=== PATIENT | female | born 1950 | race Caucasian/White ===

== ENCOUNTER 2017-01-03 12:38 | Inpatient (IN) | payer OTHER, MEDICAID ==
[2017-01-03] MEDS ORDERED: ONDANSETRON 4 MG/2 ML VIAL IVP ONE ×2 (13:14→16:21)
[2017-01-03] MEDS ORDERED: NS 1,000 ML IV ONE ×4 (13:14→19:17)
--- NOTE | 2017-01-03 13:25 | EDPHY ---
H & P Stated Complaint: abd Pain, N/V/D x3 days Time Seen by Provider: 01/03/17 13:03 HPI/ROS: CHIEF COMPLAINT: Vomiting, Diarrhea HISTORY OF PRESENT ILLNESS: The patient is a 66 year old female who presents with vomiting and diarrhea. The patient reports multiple episodes of vomiting for the past 3 day with decreased appetite. She had 2 episodes of nonbloody diarrhea, last episode was this morning. She received Zofran yesterday and today. The patient currently feels lightheaded and has diffuse myalgias. She complains of diffuse abdominal pain and mild shortness of breath. She reports contacts at [facility] with vomiting and diarrhea. The patient has not received any of her medications for the past 2 days. No fever, chills, chest pain, palpitations, urinary complaints, or headache. No history of clostridium difficile. REVIEW OF SYSTEMS: Aside from elements discussed in the HPI, a comprehensive 10-point review of systems was reviewed and is negative. PAST MEDICAL HISTORY: Hypertension, Hyperlipidemia, Reflux, Depression, COPD, GA. SOCIAL HISTORY: Patient resides [facility]. Previous EtOH use. I discussed the patients wishes. Patient is DNR. She would like antibiotics and intervention with medication. VITAL SIGNS: Reviewed by me GENERAL: Ill-appearing female, appears uncomfortable, very pale. HEENT: Atraumatic. Eyes: Pale conjunctiva. Mouth: dry mucous membranes. Pale oropharynx. No erythema or lesions. Neck: supple with no adenopathy. LUNGS: Clear to auscultation anteriorly, no wheezes, rhonchi or rales. CARDIAC: Tachycardic, distant, no rubs, murmurs or gallops. ABDOMEN: Morbidly obese, questionable fluid wave, diffusely tender. No guarding or rebound. BACK: No CVA tenderness. EXTREMITIES: No trauma. No edema. Range of motion is normal throughout. NEURO: Alert and oriented, grossly nonfocal. SKIN: Warm and dry, no rash. Pale appearing. PSYCHIATRIC: Normal mentation, no agitation. Portions of this note were transcribed by a medical pathology teacher. I personally performed a history, physical exam, medical decision making, and confirmed accuracy of information the transcribed note. - Personal History Current Tetanus/Diphtheria Vaccine: Yes Current Tetanus Diphtheria and Acellular Pertussis (TDAP): Yes - Medical/Surgical History Hx Asthma: No Hx Chronic Respiratory Disease: Yes Hx Diabetes: No Hx Cardiac Disease: Yes Hx Renal Disease: No Hx Cirrhosis: No Hx Alcoholism: No Hx HIV/AIDS: No Hx Splenectomy or Spleen Trauma: No Other PMH: depression, copd, GERD, Cardiac stents x 3, high cholersterol, HTN, artherosclerosis, hyponatremia, edema, chronic pain - Social History Smoking Status: Former smoker Constitutional: Initial Vital Signs Temperature (C) 36.8 C 01/03/17 12:51 Heart Rate 117 H 01/03/17 12:51 Respiratory Rate 16 01/03/17 12:51 Blood Pressure 116/82 H 01/03/17 12:51 O2 Sat (%) 85 L 01/03/17 12:51 O2 Delivery Mode Room Air O2 (L/minute) 2 Allergies/Adverse Reactions: No Known Allergies Allergy (Unverified 04/24/16 19:58) Home Medications: Medication Instructions Recorded Acetaminophen [Tylenol 325mg (*)] 325 mg PO Q4 PRN 04/24/16 Acetaminophen [Tylenol 325mg (*)] 650 mg PO Q4 PRN 04/24/16 Aspirin EC [Aspirin EC 81 mg (*)] 81 mg PO DAILY 04/24/16 Atorvastatin Calcium [Lipitor 40 40 mg PO HS 04/24/16 mg (*)] Clopidogrel Bisulfate [Plavix (*)] 75 mg PO DAILY 04/24/16 DULoxetine [Cymbalta 60 MG (*)] 120 mg PO HS 04/24/16 Docusate Sodium [Colace 100 MG (*)] 100 mg PO BID PRN 04/24/16 Fluticasone/Salmeter 250/50Mcg 2 puffs IH BID 04/24/16 [Advair 250/50 (*)] Losartan Potassium [Cozaar 25 mg 25 mg PO DAILY 04/24/16 (*)] Pantoprazole Sodium [Protonix 40mg 40 mg PO DAILY 04/24/16 (*)] Tiotropium Inhaler [Spiriva 18 mcg IH DAILY 04/24/16 Handihaler] Albuterol [Proventil Inhaler HFA 1 puffs IH HS PRN 01/03/17 (*)] Cholecalciferol Vit D3 [Vitamin D3 3,000 units PO DAILY 01/03/17 (*)] Cyanocobalamin [Vitamin B12 (*)] 1,000 mcg PO DAILY 01/03/17 Furosemide [Lasix 20 MG (*)] 20 mg PO DAILY 01/03/17 Ipratropium/Albuterol [Duoneb (*)] 3 ml IH Q4HRS PRN 01/03/17 Lurasidone HCl [Latuda] 40 mg PO DAILY@0800 01/03/17 Metoprolol Tartrate [Lopressor 25 12.5 mg PO BID 01/03/17 mg (*)] Ondansetron Odt [Zofran Odt 4 mg 8 mg PO Q8HRS PRN 01/03/17 (*)] Potassium Cl [Klor-Con] 10 meq PO DAILY 01/03/17 Sennosides/Docusate Sodium 1 each PO BID PRN 01/03/17 [Senna-Docusate Sodium Tablet] Medical Decision Making - Diagnostics EKG Interpretation: The 12 lead EKG was interpreted by myself. See hard copy and/or "tracemaster" electronic copy for interpretation: Sinus tachycardia, Nonspecific T waves. Imaging: X-ray: Chest was obtained. I viewed the images myself on the PACS system. My interpretation of the images is: Nothing acute. The radiologist interpretation is: No acute coronary disease. I discussed the x-ray findings with the patient. Results: CT scan of the was obtained. I viewed the images independently on the PACS system. I discussed the results of the study with the radiologist. Impression : large bowel distention without thickening of the bowel wall. Stool sitting at the level of the sigmoid. Please see the full radiology report. ED Course/Re-evaluation: IV was established. Patient received 4mg Zofran IV and 2L normal saline. BGL 213. BUN 60. Creat 2.7. Bicarbonate 12. Patient has a sodium of 132 potassium of 5.4. Lipase 16. WBC 7, hemoglobin and hematocrit 18 and 53. Patient has labs consistent with acute renal failure, and severe dehydration. Plan to admit. 2:45 p.m.: Dr. Trevino accepts the patient for admission. I will order CT abdomen. CT scan demonstrates large bowel dilatation without clear obstruction, although there is a ball of stool at the level of the sigmoid. No bowel wall thickening. No abscess. Patient was admitted to the hospital for supportive care including fluids, antiemetics. Differential Diagnosis: Differential diagnosis of the patient's nausea, vomiting, and diarrhea was considered including but not limited to gastroenteritis, gastritis, colitis, diverticulitis, bacterial dysentery, viral diarrhea and intraabdominal processes including appendicitis, pancreatitis, bowel obstruction. Consult/Admit Bed Type: Dr. Trevino, [facility] - Data Points Laboratory Results: Laboratory Results 01/03/17 13:10 01/03/17 13:10 01/03/17 01/03/17 01/03/17 13:10 13:10 13:10 WBC 7.15 10^3/uL 10^3/uL (3.80-9.50) RBC 5.38 10^6/uL H 10^6/uL (4.18-5.33) Hgb 18.0 g/dL H g/dL (12.6-16.3) Hct 54.0 % H % (38.0-47.0) MCV 100.4 fL H fL (81.5-99.8) MCH 33.5 pg pg (27.9-34.1) MCHC 33.3 g/dL g/dL (32.4-36.7) RDW 13.2 % % (11.5-15.2) Plt Count 266 10^3/uL 10^3/uL (150-400) MPV 11.7 fL fL (8.7-11.7) Neut % (Auto) 71.8 % % (39.3-74.2) Lymph % (Auto) 17.8 % % (15.0-45.0) Holt % (Auto) 9.8 % % (4.5-13.0) Eos % (Auto) 0.1 % L % (0.6-7.6) Baso % (Auto) 0.4 % % (0.3-1.7) Nucleat RBC Rel Count 0.0 % % (0.0-0.2) Absolute Neuts (auto) 5.13 10^3/uL 10^3/uL (1.70-6.50) Absolute Lymphs (auto) 1.27 10^3/uL 10^3/uL (1.00-3.00) Absolute Monos (auto) 0.70 10^3/uL 10^3/uL (0.30-0.80) Absolute Eos (auto) 0.01 10^3/uL L 10^3/uL (0.03-0.40) Absolute Basos (auto) 0.03 10^3/uL 10^3/uL (0.02-0.10) Absolute Nucleated RBC 0.00 10^3/uL 10^3/uL (0-0.01) Immature Gran % 0.1 % % (0.0-1.1) Seg Neutrophils % 9 % % Band Neutrophils % 52 % % Lymphocytes % 16 % % Monocytes % 10 % % Metamyelocytes % 11 % % Myelocytes % 2 % % Immature Gran # 0.01 10^3/uL 10^3/uL (0.00-0.10) Absolute Seg Neuts 0.64 10^/uL L 10^/uL (1.70-6.50) Absolute Band Neuts 3.72 10^3/uL H 10^3/uL (0.00-0.70) Absolute Lymphocytes 1.14 10^3/uL 10^3/uL (1.00-3.00) Absolute Monocytes 0.72 10^3/uL 10^3/uL (0.30-0.80) Absolute Metamyelocyte 0.79 10^3/mL H 10^3/mL (0.00-0.00) Absolute Myelocytes 0.14 10^3/mL H 10^3/mL (0.00-0.00) Platelet Estimate ADEQUATE (ADEQ) Giant Platelets PRESENT H Echinocytes 1+ H Smear Review By Pending Sodium 132 mEq/L L mEq/L (134-144) Potassium 5.4 mEq/L H mEq/L (3.5-5.2) Chloride 97 mEq/L mEq/L (97-110) Carbon Dioxide 12 mEq/l L mEq/l (22-31) Anion Gap 23 mEq/L H mEq/L (8-16) BUN 60 mg/dL H mg/dL (7-23) Creatinine 2.7 mg/dL H mg/dL (0.6-1.0) Estimated GFR 18 Glucose 213 mg/dL H mg/dL (70-100) Calcium 9.5 mg/dL mg/dL (8.5-10.4) Total Bilirubin 1.9 mg/dL H mg/dL (0.1-1.4) Conjugated Bilirubin 1.2 mg/dL H mg/dL (0.0-0.5) Unconjugated Bilirubin 0.7 mg/dL mg/dL (0.0-1.1) AST 32 IU/L IU/L (14-46) ALT 44 IU/L IU/L (9-52) Alkaline Phosphatase 405 IU/L H IU/L (38-126) Troponin I 0.033 ng/mL ng/mL (0-0.034) Total Protein 6.6 g/dL g/dL (6.3-8.2) Albumin 3.8 g/dL g/dL (3.5-5.0) Lipase 16.0 IU/L L IU/L (23-300) Medications Given: Discontinued Medications Sodium Chloride (Ns) 1,000 mls @ 0 mls/hr IV ONCE ONE PRN Reason: Wide Open Stop: 01/03/17 13:15 Last Admin: 01/03/17 13:23 Dose: 1,000 mls Sodium Chloride (Ns) 1,000 mls @ 0 mls/hr IV ONCE ONE PRN Reason: Wide Open Stop: 01/03/17 13:27 Last Admin: 01/03/17 13:41 Dose: 1,000 mls Ondansetron HCl (Zofran) 4 mg IVP EDNOW ONE Stop: 01/03/17 13:15 Last Admin: 01/03/17 13:24 Dose: 4 mg Departure - Departure Disposition: [facility] Acute Clinical Impression: Dehydration, Acidosis, metabolic Vomiting Qualifiers: Vomiting type: unspecified Vomiting Intractability: non-intractable Nausea presence: with nausea Qualified Code(s): R11.2 - Nausea with vomiting, unspecified Diarrhea Qualifiers: Diarrhea type: unspecified type Qualified Code(s): R19.7 - Diarrhea, unspecified Acute renal failure Qualifiers: Acute renal failure type: unspecified Qualified Code(s): N17.9 - Acute kidney failure, unspecified Condition: Serious Report Scribed for: Lia Graves Report Scribed by: Edith Cowan Date of Report: 01/03/17 Time of Report: 13:25
[2017-01-03 13:43] LABS: ALANINE AMINOTRANSFERASE 44 IU/L (9-52); ALBUMIN 3.8 g/dL (3.5-5.0); ALKALINE PHOSPHATASE 405 IU/L (38-126); ANION GAP 23 mEq/L (8-16); ASPARTATE AMINOTRANSFERASE 32 IU/L (14-46); BILIRUBIN,TOTAL 1.9 mg/dL (0.1-1.4); BILIRUBIN-CONJUGATED 1.2 mg/dL (0.0-0.5); BILIRUBIN-UNCONJUGATED 0.7 mg/dL (0.0-1.1); CALCIUM 9.5 mg/dL (8.5-10.4); CARBON DIOXIDE 12 mEq/l (22-31); CHLORIDE 97 mEq/L (97-110); CREATININE 2.7 mg/dL (0.6-1.0); GLOMERULAR FILTRATION RATE 18; GLUCOSE 213 mg/dL (70-100); POTASSIUM 5.4 mEq/L (3.5-5.2); SODIUM 132 mEq/L (134-144); TOTAL PROTEIN 6.6 g/dL (6.3-8.2)
[2017-01-03 13:44] LABS: % IMMATURE GRANULYOCYTES 0.1 % (0.0-1.1); ABSOLUTE IMMATURE GRANULOCYTES 0.01 10^3/uL (0.00-0.10); ADD DIFF? NO; ADD MORPH? NO; ADD SCAN? YES; ATYPICAL LYMPHOCYTE FLAG 0 (0-99); FRAGMENT RBC FLAG 0 (0-99); LIPEMIA HEMOLYSIS FLAG 80 (0-99); MEAN CELL HEMOGLOBIN 33.5 pg (27.9-34.1); MEAN CELL HEMOGLOBIN CONCENTR. 33.3 g/dL (32.4-36.7); MEAN CELL VOLUME 100.4 fL (81.5-99.8); MEAN PLATELET VOLUME 11.7 fL (8.7-11.7); PLATELET CLUMPS FLAG 10 (0-99); PLATELET COUNT 266 10^3/uL (150-400); RED BLOOD CELL COUNT 5.38 10^6/uL (4.18-5.33); RED CELL DISTRIBUTION WIDTH 13.2 % (11.5-15.2)
[2017-01-03 13:47] LABS: LEFT SHIFT FLG 300 (0-99)
--- NOTE | 2017-01-03 13:53 | CPEKG ---
Heart Rate: 110 RR Interval: 545 P-R Interval: 148 QRSD Interval: 80 QT Interval: 292 QTC Interval: 396 P Smoot: 75 QRS Smoot: 23 T Wave Smoot: 97 EKG Severity - ABNORMAL ECG - EKG Impression: SINUS TACHYCARDIA EKG Impression: LOW VOLTAGE IN FRONTAL LEADS EKG Impression: NONSPECIFIC T ABNORMALITIES, ANT-LAT LEADS Electronically Signed By: Lia Graves 03-Jan-2017 15:39:56
[2017-01-03 14:44] LABS: SCAN POSITIVE
[2017-01-03 14:48] LABS: ECHINOCYTES 1+; GIANT PLATELETS PRESENT; PLATELET ESTIMATE ADEQUATE (ADEQ)
[2017-01-03] MEDS ORDERED: ONDANSETRON 4 MG/2 ML VIAL ONE (16:15)
[2017-01-03] MEDS ORDERED: DOCUSATE SODIUM 100 MG CAP PO PRN (17:12)
[2017-01-03] MEDS ORDERED: IPRATROPIUM/ALBUTEROL 3 ML DEYVIAL IH PRN (17:12)
[2017-01-03] MEDS ORDERED: ONDANSETRON DISINTEGRATING 4 MG TAB PO PRN (17:15)
[2017-01-03] MEDS ORDERED: ONDANSETRON 4 MG/2 ML VIAL IVP PRN (17:15)
[2017-01-03] MEDS ORDERED: ACETAMINOPHEN 325 MG TAB PO PRN (17:15)
[2017-01-03] MEDS ORDERED: oxyCODONE IR 5 MG TAB PO PRN (17:27)
--- NOTE | 2017-01-03 17:59 | GHP ---
[f rep st] HISTORY AND PHYSICAL DATE OF ADMISSION: 01/03/2017 CHIEF COMPLAINT: Nausea, vomiting, diarrhea, acute renal failure. HISTORY OF PRESENT ILLNESS: Patient is a 66-year-old female, history of CAD, status post stent, brought in from [facility] with nausea, vomiting and diarrhea. For the past 3 days, she has had several episodes of nonbloody emesis , as well as nonbloody diarrhea, last episode being this morning. She uses Zofran yesterday and today with some relief. She has had minimal p.o. intake and is feeling lightheaded and dizzy. Has had some diffuse myalgias. Complains of diffuse crampy abdominal pain and mild shortness of breath. She reports ill contacts at [facility] with vomiting and diarrhea. She has not taken any of her medications over the past 2 days. Denies fevers, chills, or sweats. No chest pain or palpitations. No dysuria. No headache. REVIEW OF SYSTEMS: I completed a 10-point review of systems, negative except as noted in HPI. PAST MEDICAL HISTORY: 1. CAD, status post 2 stents. 2. COPD. 3. Hypertension. 4. Depression. PAST SURGICAL HISTORY: Hysterectomy. FAMILY HISTORY: CAD. SOCIAL HISTORY: Lives at [facility]. Smoked a pack and half of cigarettes for 50 years. No alcohol or illicits. ALLERGIES: None. MEDICATIONS: See medication reconciliation. PHYSICAL EXAMINATION: VITAL SIGNS: Temperature 36.8, blood pressure 116/82, heart rate one teens, respirations 16, 85% on room air and 96% on 2 L. GENERAL : Patient is ill-appearing, very pale, groggy. HEENT: PERRLA. EOMI. Very dry mucous membranes. Oropharynx is clear. No exudate. CV: Regular rate and rhythm. No murmurs, gallops, or rubs. LUNGS: Clear to auscultation. ABDOMEN : Obese, distended, diffusely tender. No rebound or guarding. Positive bowel sounds throughout. : No suprapubic tenderness. MUSCULOSKELETAL: Moving all 4 extremities. SKIN: Cold upper extremities. No rash or ulceration. NEUROLOGIC: 2 through 12 intact. No focal deficits. PSYCHIATRIC: Slow to answer, but alert to place and date. Had just received morphine. LAB: WBC 7, hemoglobin 18, hematocrit 54, platelets are 266. Sodium 132 potassium 5.4, chloride 97, carbon dioxide 12, BUN 60, creatinine 2.7, glucose 217. Total bilirubin 1.9, conjugated 1.2. AST 32, AST 44, alkaline phosphatase 403. Troponin 0.033. Total free protein 16. Albumin 3.8, lipase 16. Chest x-ray personally reviewed by me: No evidence of effusion or opacity. CT abdomen and pelvis: [id number] dilatation of large bowel from the cecum to the sigmoid colon. No obstruction. Distended stomach. Mild emphysematous changes within the lung. Some scarring left lower lobe. EKG personally reviewed by me: A normal sinus rhythm. Nonspecific ST abnormalities. Low voltage. Similar to prior. ASSESSMENT/PLAN: 1. Nausea, vomiting, diarrhea: Suspect this is a gastroenteritis, given ill contacts at [facility]. Check a stool PCR, including C difficile. Will hydrate with IV fluids, p.r.n. antiemetics, and pain medications. CT showed dilatation, but no evidence of obstruction or abscess. 2. Acute renal failure: Creatinine is elevated 2.7. Suspect this is secondary to emesis, diarrhea, and decreased p.o. intake. Will hold Lasix and lisinopril. Check UA and urine electrolytes. Aggressive IV fluid resuscitation. 3. History of coronary artery disease: Status post 2 stents. Continue beta- fabiano, aspirin, and statin. 4. Chronic obstructive pulmonary disease: Continue home inhalers. 5. Benign hypertension: Hold antihypertensives given low blood pressure here. 6. Hyperbilirubinemia: Suspect secondary to a GI illness. Will repeat in the morning. 7. Hyperkalemia: Mildly elevated 5.4. No EKG changes. Repeating this evening. 8. Polycythemia: Suspect this is due to dehydration. Will repeat in the morning. 9. Hypotension: responding to IVFS, will check lactate. Afebrile. No leukocytosis. Trop and EKG negative for ischemia. 10. Diet: Cardiac. 11. DVT prophylaxis: Subcu heparin. 12. Patient warrants inpatient admission, given acute renal failure, severe dehydration requiring IV fluids, and telemetry. /[id number]/MODL MTDD
[2017-01-03] MEDS: NS 1,000 ML IV SCH ×2 (18:31→21:18)
[2017-01-03] MEDS ORDERED: DULoxetine 60 MG CAP PO SCH (21:00)
[2017-01-03] MEDS ORDERED: METOPROLOL TARTRATE 25 MG TAB PO SCH (21:00)
[2017-01-03] MEDS ORDERED: ATORVASTATIN CALCIUM 40 MG TAB PO SCH (21:00)
[2017-01-03] MEDS: HEPARIN 5,000 UNIT/0.5 ML SYR SC SCH (21:18)
[2017-01-03] MEDS ORDERED: NOREPINEPHRINE BITARTRATE 4 MG in D5W 500 ML IV SCH (22:00)
--- NOTE | 2017-01-03 22:01 | SOAPPROG ---
SOAP Progress Note Assessment/Plan: Called to bedside 21:45 as patient now hypotensive with SBP 83 and unable to draw blood for labs. She was initially bolused 3L NS in ER; I gave additional liter and BP improved to 134/86. S: c/o crampy abd pain and it "feels full" #Septic shock: not responding to IVFs with oliguria. No clear infectious source. Lactate 4.9, afebrile, no leukocytosis. CT abd/pelvis negative for abscess, CXR negative. K was mildly elevated with no EKG changes -Pending labs: UA, GI panel, Influenza. -Transfer to ICU. Appreciate Dr. Waters's assistance with central line. Start dopamine temporarily, then change to Levophed. Cont IVFs -repeat CMP, CBC, lactate, troponin. Check stat blood cultures, cortisol. Start IV Zoysn for intraabdominal coverage; renally-dosed -place bolanos for accurate I/Os #Abdominal pain/distention: dilation, no obstruction on CT. Reviewed with Dr. Waters. Will place NG for decompression #Oliguric ARF: suspect due to dehydration, hypotension. Aggressive IVFs, now on pressors. Urine studies pending. Renally-dose medications. #Goals: DNR. Spoke with her sister, Yessica, on the phone (MDPOA) She confirmed DNR status. If issues, call her overnight. Critical care time spent 60 min: spent bedside with pt, coordinating ICU transfer and discussing case with Dr. Waters 01/03/17 23:49 Objective: Vital Signs Temp Pulse Resp BP Pulse Ox 36.4 C 116 H 16 85/62 L 92 01/03/17 21:37 01/03/17 21:50 01/03/17 21:37 01/03/17 21:50 01/03/17 21:37 Laboratory Results 01/03/17 20:30 01/02/17 01/03/17 01/04/17 05:59 05:59 05:59 Intake Total 3130 Balance 3130 Physical Exam - Physical Exam General Appearance: alert EENT: PERRL/EOMI, pale conjunctiva (R) Respiratory: lungs clear Cardiac/Chest: regular rate, rhythm Abdomen: normal bowel sounds, other (distended, mild diffuse TTP) Skin: pallor Neuro/Psych: oriented x 3 ICD10 Worksheet Patient Problems: Problems Problem Status Onset Acidosis, metabolic Acute Acute renal failure Acute Dehydration Acute Diarrhea Acute Vomiting Acute Nausea vomiting and diarrhea Acute
[2017-01-03] MEDS ORDERED: NS 1,000 ML IV SCH (22:30)
[2017-01-03 22:33] LABS: COLOR AMBER; LEUKOCYTE ESTERASE,URINE NEGATIVE (NEGATIVE); MUCUS TRACE /lpf (NONE-1+); NITRITE,URINE NEGATIVE (NEGATIVE)
[2017-01-03] MEDS: FLUTICASONE/SALMETER 250/50MCG DISKUS IH SCH (22:41)
[2017-01-03 22:53] LABS: HYALINE CASTS 25-50 /lpf (0-1)
[2017-01-03 22:54] LABS: RBC,URINE NONE SEEN /hpf (0-3); WBC,URINE NONE SEEN /hpf (0-3)
[2017-01-03 22:55] LABS: BACTERIA NONE SEEN /hpf (NONE SEEN); YEAST NONE SEEN /hpf (NONE SEEN)
[2017-01-03] MEDS ORDERED: DOPamine/DEXTROSE/250 ML BAG IV ONE (23:00)
--- NOTE | 2017-01-03 23:15 | GOP ---
[f rep st] OPERATIVE REPORT DATE OF OPERATION: 01/03/2017 SURGEON: Milagro Waters MD ANESTHESIA: None. PREOPERATIVE DIAGNOSIS: Sepsis with hypotension. POSTOPERATIVE DIAGNOSIS: Sepsis with hypotension. PROCEDURE PERFORMED: Ultrasound-guided right internal jugular triple-lumen catheter placement. FINDINGS: Short neck SPECIMENS: None. ESTIMATED BLOOD LOSS: 5 cc INDICATIONS: The patient is a 66-year-old woman who has been admitted for nausea, vomiting, dehydration. Despite aggressive fluid resuscitation, she became more hypotensive and was requiring pressors. Central line was indicated. DESCRIPTION OF PROCEDURE: The patient was in her room. A consent form was signed. A time-out was performed. She was placed in the Trendelenburg position. I performed an ultrasound of her neck. Her neck was prepped and draped in the usual sterile fashion. I again performed ultrasound and identified the right internal jugular vein. I infiltrated the site with 2 cc of 1% lidocaine. I accessed the internal jugular vein with dark return of blood flow on the 2nd attempt. I threaded the guidewire and removed the needle. I made a small [place] in the skin. I placed a dilator over the wire and removed the dilator. I placed a triple-lumen catheter over the wire, and removed the wire. Each port withdrew blood easily and was flushed with saline. It was sutured into place with 2-0 silk. A sterile dressing was applied. A chest x-ray was performed. I did not see pneumothorax. She tolerated the procedure well. /[id number]/MODL MTDD
[2017-01-03 23:43] LABS: ALANINE AMINOTRANSFERASE 50 IU/L (9-52); ALBUMIN 2.3 g/dL (3.5-5.0); ALKALINE PHOSPHATASE 411 IU/L (38-126); ANION GAP 12 mEq/L (8-16); ASPARTATE AMINOTRANSFERASE 46 IU/L (14-46); BILIRUBIN,TOTAL 2.1 mg/dL (0.1-1.4); BILIRUBIN-CONJUGATED 1.4 mg/dL (0.0-0.5); BILIRUBIN-UNCONJUGATED 0.7 mg/dL (0.0-1.1); CARBON DIOXIDE 13 mEq/l (22-31); CHLORIDE 108 mEq/L (97-110); CREATININE 2.1 mg/dL (0.6-1.0); GLOMERULAR FILTRATION RATE 24; GLUCOSE 120 mg/dL (70-100); POTASSIUM 4.6 mEq/L (3.5-5.2); SODIUM 133 mEq/L (134-144); TOTAL PROTEIN 4.4 g/dL (6.3-8.2)
[2017-01-03 23:54] LABS: TROPONIN I 0.019 ng/mL (0-0.034)
[2017-01-04] MEDS ORDERED: PIPERACILLIN/TAZO 4.5 GM/DEX 100 ML IV SCH
[2017-01-04 00:12] LABS: MIXED VENOUS O2 SATURATION 86 % (65-75)
[2017-01-04] MEDS: PIPERACILLIN/TAZO 3.375 GM/DEX 50 ML IV SCH ×3 (00:30→11:30)
[2017-01-04] MEDS: HYDROmorphONE/DILAUDID 1 MG/ML SYR IVP PRN ×3 (01:04→09:04)
[2017-01-04 03:11] LABS: HEMATOCRIT 41.5 % (38.0-47.0); HEMOGLOBIN 13.4 g/dL (12.6-16.3)
[2017-01-04 05:39] LABS: IONIZED CALCIUM 1.04 MMOL/L (1.12-1.30)
[2017-01-04 05:45] LABS: HEMATOCRIT 41.9 % (38.0-47.0); HEMOGLOBIN 13.6 g/dL (12.6-16.3); MEAN CELL HEMOGLOBIN 33.6 pg (27.9-34.1); MEAN CELL HEMOGLOBIN CONCENTR. 32.5 g/dL (32.4-36.7); MEAN CELL VOLUME 103.5 fL (81.5-99.8); RED BLOOD CELL COUNT 4.05 10^6/uL (4.18-5.33); RED CELL DISTRIBUTION WIDTH 13.5 % (11.5-15.2)
[2017-01-04 06:01] LABS: ALANINE AMINOTRANSFERASE 58 IU/L (9-52); ALBUMIN 1.9 g/dL (3.5-5.0); ALKALINE PHOSPHATASE 433 IU/L (38-126); ANION GAP 13 mEq/L (8-16); ASPARTATE AMINOTRANSFERASE 56 IU/L (14-46); BILIRUBIN,TOTAL 2.1 mg/dL (0.1-1.4); CALCIUM 6.5 mg/dL (8.5-10.4); CARBON DIOXIDE 10 mEq/l (22-31); CHLORIDE 113 mEq/L (97-110); GLOMERULAR FILTRATION RATE 25; GLUCOSE 102 mg/dL (70-100); MAGNESIUM 2.6 mg/dL (1.6-2.3); POTASSIUM 4.6 mEq/L (3.5-5.2); SODIUM 136 mEq/L (134-144)
[2017-01-04 06:12] LABS: TROPONIN I 0.026 ng/mL (0-0.034)
[2017-01-04] MEDS: HEPARIN 5,000 UNIT/0.5 ML SYR SC SCH ×2 (06:17→15:53)
[2017-01-04 06:25] LABS: BILIRUBIN-CONJUGATED 1.7 mg/dL (0.0-0.5); BILIRUBIN-UNCONJUGATED 0.4 mg/dL (0.0-1.1)
[2017-01-04 07:06] LABS: MIXED VENOUS O2 SATURATION 95 % (65-75)
[2017-01-04] MEDS ORDERED: LURASIDONE HCL 40 MG TAB PO SCH (08:00)
[2017-01-04] MEDS ORDERED: CHOLECALCIFEROL VIT D3 1,000 UNITS TAB PO SCH (09:00)
[2017-01-04] MEDS ORDERED: ASPIRIN EC 81 MG TAB PO SCH (09:00)
[2017-01-04] MEDS ORDERED: PANTOPRAZOLE SODIUM 40 MG TAB PO SCH (09:00)
[2017-01-04] MEDS ORDERED: CYANO/VITAMIN B12 1000 MCG TAB PO SCH (09:00)
[2017-01-04] MEDS ORDERED: LANSOPRAZOLE SUSP 30MG/10ML UDSYR (Adult) TUBE SCH (09:00)
[2017-01-04] MEDS ORDERED: CLOPIDOGREL BISULFATE 75 MG TAB PO SCH (09:00)
[2017-01-04] MEDS ORDERED: TIOTROPIUM INHALER 18 MCG/DOSE 5 DOSE/MDI IH SCH (09:00)
[2017-01-04] MEDS: FLUTICASONE/SALMETER 250/50MCG DISKUS IH SCH (09:04)
--- NOTE | 2017-01-04 12:37 | GCON ---
[f rep st] CONSULTATION REASON FOR ADMISSION: Nausea, vomiting, diarrhea, acute renal failure, and hypotension. HISTORY OF PRESENT ILLNESS: The patient is a 66-year-old female with a past medical history includi ng coronary artery disease, chronic obstructive pulmonary disease, hypertension, and depression. Fredy peter had nausea and vomiting, as well as nonbloody diarrhea over the 3 days prior to admission. This i mproved slightly with some Zofran. She is unable to keep down her medications. She was admitted to the intensive care unit and remains somewhat hypotensive at this time. PAST MEDICAL HISTORY: Significant for coronary artery disease, hypertension, depression, and chroni c obstructive pulmonary disease. PAST SURGICAL HISTORY: Hysterectomy. ALLERGIES: None known to medications. SOCIAL HISTORY: She is a 70+ pack year smoker. No significant alcohol use. She resides at [facility]. CURRENT MEDICATIONS: Include: Tylenol, DuoNeb, aspirin, Lipitor, vitamin D, Plavix, Colace, dopami ne, Cymbalta, Dilaudid, Prevacid, Latuda, Zofran, Zosyn, Advair and Spiriva. PHYSICAL EXAMINATION: VITAL SIGNS: Blood pressure is 112/77, pulse is 126, respirations are 34, te mperature is 36.8, oxygen saturation 100% on 5 L. GENERAL: She is a mildly overweight 66-year-old white female who is mildly tachypneic. HEENT: Eyes are PERRL, EOMI. Throat shows no erythema or t onsillar hypertrophy. NECK: Supple. No cervical adenopathy. HEART: Regular rate and rhythm with a 2/6 systolic murmur at the left sternal border without radiation. She is tachycardic. LUNGS: Diminished breath sounds with mild prolongation of expiratory phase. She is somewhat tachyp neic. ABDOMEN: Soft, nontender. Bowel sounds are present. EXTREMITIES: No clubbing, cyanosis, o r edema. LABORATORIES: White count is 3.6, hemoglobin 13, hematocrit 41, platelet count is 191. Sodium 136, potassium 4.6, chloride 113, CO2 is 10, BUN is 59, creatinine 2.0, glucose is 102. Alkaline phosph atase mildly elevated at 433. Urinalysis is negative. Influenza A and B are negative. Stool is po sitive for occult blood. Chest x-ray shows NG tube in good position and stable mild cardiomegaly. CT scan of the abdomen and pelvis shows [id number] dilatation of the large bowel. There is somewhat of a distended stom ach. She has mild emphysematous changes. IMPRESSION: 1. Nausea, vomiting, and abdominal pain, etiology of which is unclear. 2. Hypotension. This is likely hypovolemia. Must also take into consideration possible sepsis. 3. Chronic obstructive pulmonary disease with possible exacerbation. 4. History of hypertension. 5. History of depression. RECOMMENDATIONS: 1. Agree with current IV fluids. 2. Will check an echocardiogram. 3. Frequent nebulizing with both albuterol and Atrovent. 4. Consider starting IV steroids. 5. DVT and PE prophylaxis. 6. Stress ulcer prophylaxis. 7. Adequate pain control. /[id number]/MODL
[2017-01-04 14:17] VITALS: BP 134/94; TEMP 98.6
--- NOTE | 2017-01-04 14:42 | ECHO ---
[id number] + + [address] : : [place] [address] : : [phone] + + Adult Echocardiographic Report + + :Name: VIRGINIA CRUZ Study Date: 01/04/2017 12:12 PM : : Hospital Admission Number: [id number] : :: 1950 Gender: Female Height: 65 in : :Age: 66 yrs Race: WH Weight: 244 lb : :Reason For Study: Eval LV Fx : : BSA: 2.2 meters2: + + MMode/2D Measurements \T\ Calculations IVSd: 1.1 cm LVIDd: 4.9 cm FS: 39.8 % Ao root diam: 2.6 cm LVPWd: 1.1 cm LVIDs: 2.9 cm EDV(Teich): 110.2 ml ACS: 1.3 cm ESV(Teich): 32.8 ml EF(Teich): 70.2 % Normal Measurement Values: + + :LVIDd (3.5-5.7cm) IVSd (0.6-1.1cm) LVPWd (0.6-1.1cm) Aortic Root (2.0-3.7cm)Left Atrium (1.5-4.0cm): :LV Vol(d) (76-115ml) LV Vol(s) (29-48ml) Ejec Fraction (50-65%)PV Sandor (0.6- 1.2m/s) TV Sandor (0.4-1.0m/s) : :MV E Sandor (0.8-1.0m/s)MV A Sandor (0.3-1.0m/s)LVOT Sandor (0.7-1.2m/s) Asc Ao Sandor ( 0.9-1.8m/s) : + + Doppler Measurements \T\ Calculations MV E max sandor: Ao V2 max: LV V1 max: PA V2 max: 85.9 cm/sec 148.0 cm/sec 91.3 cm/sec 54.3 cm/sec Ao max P.8 mmHgLV V1 max PG: PA max P.3 mmHg 1.2 mmHg TR max sandor: 211.7 cm/sec TR max P.9 mmHg RAP systole: 5.0 mmHg RVSP(TR): 22.9 mmHg Left Ventricle The left ventricle is normal in size. There is mild concentric left ventricular hypertrophy. The left ventricular ejection fraction is normal. Tachycardia. Ejection Fraction = 65%. Right Ventricle The right ventricle is normal in size and function. Atria The left atrial size is normal. Mitral Valve There is mild mitral annular calcification. There is no mitral valve stenosis. There is trace mitral regurgitation. Tricuspid Valve Normal tricuspid valve. Right ventricular systolic pressure is normal. There is trace to mild tricuspid regurgitation. Aortic Valve Mild Aortic Valve Calcification. There is no aortic stenosis. There is no aortic insufficiency. Pulmonic Valve The pulmonic valve is normal in structure and function. Great Vessels The aortic root is normal size. Pericardium/Pleural There is no pericardial effusion. There is a fat pad seen. Conclusion A complete two-dimensional transthoracic echocardiogram was performed (2D, M-mode, Doppler and color flow Doppler). There is mild concentric left ventricular hypertrophy. The left ventricular ejection fraction is normal. Tachycardia Ejection Fraction = 65%. There is mild mitral annular calcification. There is trace mitral regurgitation. Right ventricular systolic pressure is normal. There is trace to mild tricuspid regurgitation. Mild Aortic Valve Calcification There is no pericardial effusion. There is a fat pad seen. Final Reading Physician: Nick Fitch signed on 01/04/2017 02:41 PM Ordering Physician: Phil Cummins Performed By: Miguel Wilkes, CS
[2017-01-04 14:57] LABS: BASE EXCESS -20.8 mEq/L (-2.5-2.5); BICARBONATE 9 mEq/L (22-26); MEASURED OXYGEN SATURATION 96 % (92-95); PCO2 35 mmHg (34-38); PO2 128 mmHg (65-75); TCO2 10 mEq/L (23-27)
[2017-01-04 15:09] VITALS: PULSE 114; RESP 32; O2SAT 92
--- NOTE | 2017-01-04 15:30 | PDINTPN ---
[facility] Progress Note Assessment/Plan: Assessment: Long discussion with patient's POA, her sister Sadaf, regarding her poor prognosis and the need for surgical intervention. It is Sadaf's wish that no heroic measures be performed, including surgery, and that patient be made comfortable. We will abide by her wishes. Patient is DNR Plan: 01/04/17 15:28 Objective: Vital Signs Temp Pulse Resp BP Pulse Ox 37.0 C 114 H 32 H 134/94 H 92 01/04/17 14:00 01/04/17 15:00 01/04/17 15:00 01/04/17 14:00 01/04/17 15:00 Laboratory Results 01/04/17 05:20 01/04/17 05:20 01/03/17 01/04/17 01/05/17 05:59 05:59 05:59 Intake Total 5541 Output Total 1999 Balance 3541 ICD10 Worksheet Patient Problems: Problems Problem Status Onset Acidosis, metabolic Acute Acute renal failure Acute Dehydration Acute Diarrhea Acute Vomiting Acute Nausea vomiting and diarrhea Acute
--- NOTE | 2017-01-04 16:31 | HOSPPROG ---
Hospitalist Progress Note Assessment/Plan: 66 yo F w/ hx of CAD, copd presenting with n/v/d and septic shock # septic shock: in setting of presumed intra abdominal infection with diffuse abd pain and n/v/d on presentation. Central line placed, started on pressors. Lactic acid unfortunately continues to increase, consideration for ex lap to further evaluate however goals of care per patients sister are for comfort only. will not escalate care # n/v/d: in setting of above and presumed intra abdominal infection or other acute issues, abd ct without e/o perforation or obstruction but did have diffusely dilated loops of bowel. As above. # sara: likely ATN 2/2 shock, now oliguric, as above given goals of care will not consult renal or escalate care # elevated lfts: with mild transaminitis and sig increase in alk phos, again abd CT personally reviewed and no clear etiology for this, given goals of care will stop trending # DNR # dispo: comfort care given patient and MDPOA goals of care, unlikely she will survive this acute illness Patient new to my care. Records reviewed and summarized as above. Care plan reviewed with Dr. Cummins and multidisciplinary care team, further hx obtained from patients sister present at bedside. Objective: Vital Signs Temp Pulse Resp BP Pulse Ox 37.0 C 114 H 32 H 134/94 H 92 01/04/17 14:00 01/04/17 15:00 01/04/17 15:00 01/04/17 14:00 01/04/17 15:00 Laboratory Results 01/04/17 05:20 01/04/17 05:20 01/03/17 01/04/17 01/05/17 05:59 05:59 05:59 Intake Total 5541 Output Total 2000 Balance 3541 somnolent awake anicteric op clear tachy regular dec bs throughout soft, ttp diffusely, dec bs no cce warm dry well perfused somnolent, moves all 4 - Time Spent With Patient Time Spent with Patient: greater than 35 minutes Time Spent with Patient: Greater than 35 minutes spent on this patients care, greater than 50% of time spent counseling, educating, and coordinating care regarding the above mentioned plan. ICD10 Worksheet Patient Problems: Problems Problem Status Onset Nausea vomiting and diarrhea Acute Vomiting Acute Diarrhea Acute Acute renal failure Acute Dehydration Acute Acidosis, metabolic Acute
[2017-01-04] MEDS ORDERED: LORazepam 2 MG/ML INJ IVP SCH (18:00)
--- NOTE | 2017-01-05 09:28 | PDDCSUM ---
Discharge Summary Discharge Summary: Dates of care: 01/03-01/04/17-- of note, patient evening of 01/04/17 Diagnosis at time of : # septic shock # intra-abdominal infection # n/v/d # sara/atn # elevated lfts # chronic anxiety Hospital course by problem: # septic shock: with presumed intra abdominal infection, started on pressors without improvement, consideration for exploratory surgery, but given goals of care this was not performed in favor of comfort care # n/v/d: in setting of above and presumed intra abdominal infection -- exploratory laparatomy was recommended as next step, but patients sister preferring to pursue comfort care only as below # sara: likely ATN 2/2 shock, now oliguric, as above given goals of care will not consult renal or escalate care # elevated lfts: with mild transaminitis and sig increase in alk phos, again abd CT personally reviewed and no clear etiology for this, given goals of care will stop trending # DNR # dispo: patient later in the evening after transitioning to comfort measures >35 minutes spent in dc of patient, more than half in coordination of care
== END 2017-01-04 20:15 | disposition expired | DRG 871 ==
LOC: EDUNIT# → OBSVTOIN 15:03 → F3N 18:04 → F2N 23:14
PROVIDERS: ADMIT Internal Medicine; ATTEND Internal Medicine
PROC: 05HM33Z Insertion of Infusion Device into Right Internal Jugular Vein, Percutaneous Approach (ICD-10-PCS; principal; 2017-01-04)
DX: A41.9 Sepsis, unspecified organism (principal); R65.21 Severe sepsis with septic shock; B99.9 Unspecified infectious disease; N17.9 Acute kidney failure, unspecified; E86.0 Dehydration; E87.5 Hyperkalemia; I10 Essential (primary) hypertension; E78.5 Hyperlipidemia, unspecified; K21.9 Gastro-esophageal reflux disease without esophagitis; J44.9 Chronic obstructive pulmonary disease, unspecified; I25.10 Atherosclerotic heart disease of native coronary artery without angina pectoris; I25.2 Old myocardial infarction; Z95.5 Presence of coronary angioplasty implant and graft; Z87.891 Personal history of nicotine dependence; Z66 Do not resuscitate
CPT/HCPCS: 82530-90; 83789-90; 96374; J1170; J1265; J2405; J2543